=== PATIENT | female | born 1950 | race African-American/Black ===

== ENCOUNTER 2022-05-31 21:24 | Inpatient (IN) | payer MEDICARE, SELFPAY ==
[2022-05-31 22:29] LABS: #Monocytes 0.6 10x3/uL (0.0-1.1); #Neutrophils 12.9 10x3/uL (1.5-8.4); %Basophils 0.2 % (0.0-2.0); %Monocytes 4.4 % (0.0-10.0); %Neutrophils 90.8 % (40.0-75.0); Hemoglobin 16.1 g/dL (12.0-15.5); Mean Corpuscular HGB CONC 31.8 g/dL (32.0-36.0); Mean Corpuscular Hemoglobin 28.3 pg (27.0-33.0); Mean Corpuscular Volume 88.9 fl (81.6-98.3); Mean Platelet Volume 12.4 fl (7.4-10.4); Platelet Count 374 10x3/uL (150-450); RBC Distribution Width 13.1 % (11.5-14.5); Red Blood Cell (RBC) Count 5.69 10x6/uL (3.90-5.03); White Blood Cell (WBC) Count 14.2 10x3/uL (3.5-10.5)
[2022-05-31 22:39] LABS: ALT (SGPT) 20 U/L (8-55); AST (SGOT) 14 U/L (5-34); Albumin 4.6 g/dL (3.4-4.8); Alkaline Phosphatase 88 U/L (40-110); Anion Gap 36 mmol/L (10-20); BUN (Urea Nitrogen) 71 mg/dL (9.8-20.1); Bilirubin, Total 0.5 mg/dL (0.2-1.2); Calc. Creatinine Clearance 0 mL/min (70-130); Calcium 10.7 mg/dL (7.8-10.44); Carbon Dioxide 11 mmol/L (23-31); Chloride 94 mmol/L (98-107); Estimated GFR 15; Globulin 4.1 g/dL (2.4-3.5); Protein, Total 8.7 g/dL (5.8-8.1); Sodium 135 mmol/L (136-145)
[2022-05-31 22:55] LABS: Glucose 1101 mg/dL (83-110); Potassium 6.2 mmol/L (3.5-5.1)
[2022-05-31 23:09] LABS: Bilirubin Neg (Negative); Blood, Urine 10 (Negative); Clarity Clear (Clear); Glucose, Urine (Dipstick) >=1000 mg/dL (Negative); Ketone, Urine 15 mg/dL (Negative); Leukocyte Negative (Negative); Nitrite Negative (Negative); Protein, Urine (Dipstick) Negative (Neg-Trace); Specific Gravity, Urine 1.015 (1.005-1.030); Urobilinogen Normal mg/dL (Less than 2)
[2022-05-31 23:15] LABS: Bacteria/HPF 1+ HPF (None Seen); WBC/HPF 0-3 HPF (0-3)
[2022-05-31] MEDS ORDERED: INSULIN REGULAR IN 0.9 % NACL 100 UNIT/100 ML BAG ONE (23:45)
[2022-06-01] MEDS ORDERED: Electrolyte Replacement Protocol 1 EACH IVPB PRN (00:57)
[2022-06-01] MEDS ORDERED: Dextrose 5 %-0.45 % NaCl 1,000 ML IV PRN ×2 (00:57→23:35)
[2022-06-01] MEDS ORDERED: Calcium Gluconate 4.6 MEQ in Sodium Chloride 0.9% 100 ML IVPB ONE (00:57)
[2022-06-01] MEDS ORDERED: Sodium Chloride 0.9% 1,000 ML IV PRN ×5 (00:57→23:35)
[2022-06-01] MEDS ORDERED: NS 0.9% w/ 20 MEQ KCL 1,000 ML IV PRN ×2 (00:57)
[2022-06-01] MEDS ORDERED: D5 1/2 NS w/20 mEq KCL 1,000 ML IV PRN (00:57)
[2022-06-01] MEDS ORDERED: Dextrose 50% Abboject 50 ML SYRINGE SLOW IVP PRN (00:57)
[2022-06-01] MEDS ORDERED: Nystatin 500,000 UNITS/5 ML UDCUP SSW SCH (01:00)
[2022-06-01] MEDS ORDERED: Acetaminophen 325 MG TAB PO PRN (01:03)
[2022-06-01] MEDS: INSULIN REGULAR IN 0.9 % NACL 100 UNIT in Premix Bag 1 BAG IVPB SCH ×2 (01:15→10:28)
[2022-06-01 01:17] LABS: Magnesium 3.2 mg/dL (1.6-2.6); Phosphorus 8.1 mg/dL (2.3-4.7)
[2022-06-01] MEDS: Nystatin 500,000 UNITS/5 ML UDCUP SSW SCH ×4 (02:13→20:02)
[2022-06-01] MEDS: Sodium Chloride 0.9% 1,000 ML IV PRN ×2 (02:16→03:17)
[2022-06-01] MEDS ORDERED: FLU VACC QS2022-23(65YR UP)/PF 240 MCG/0.7 ML SYRINGE IM ONE (02:30)
[2022-06-01 02:49] LABS: Anion Gap 32 mmol/L (10-20); BUN (Urea Nitrogen) 67 mg/dL (9.8-20.1); Calc. Creatinine Clearance 25 mL/min (70-130); Chloride 113 mmol/L (98-107); Estimated GFR 17; Potassium 5.5 mmol/L (3.5-5.1); Sodium 147 mmol/L (136-145)
[2022-06-01 02:50] LABS: Carbon Dioxide 8 mmol/L (23-31); Glucose 717 mg/dL (83-110)
[2022-06-01] MEDS ORDERED: Calcium Gluconate 4.6 MEQ in Sodium Chloride 0.9% 100 ML IVPB SCH (03:00)
[2022-06-01 04:32] LABS: Glucose 512 mg/dL (83-110)
[2022-06-01 05:27] LABS: #Monocytes 1.7 10x3/uL (0.0-1.1); #Neutrophils 11.8 10x3/uL (1.5-8.4); %Basophils 0.2 % (0.0-2.0); %Lymphocytes 8.7 % (18.0-47.0); %Monocytes 11.4 % (0.0-10.0); %Neutrophils 79.2 % (40.0-75.0); Hemoglobin 14.4 g/dL (12.0-15.5); Mean Corpuscular Hemoglobin 28.2 pg (27.0-33.0); Mean Corpuscular Volume 85.5 fl (81.6-98.3); Mean Platelet Volume 11.6 fl (7.4-10.4); Platelet Count 318 10x3/uL (150-450); RBC Distribution Width 12.7 % (11.5-14.5); Red Blood Cell (RBC) Count 5.11 10x6/uL (3.90-5.03); White Blood Cell (WBC) Count 14.9 10x3/uL (3.5-10.5)
[2022-06-01 05:34] LABS: Anion Gap 20 mmol/L (10-20); BUN (Urea Nitrogen) 54 mg/dL (9.8-20.1); Calc. Creatinine Clearance 33 mL/min (70-130); Calcium 9.9 mg/dL (7.8-10.44); Carbon Dioxide 18 mmol/L (23-31); Chloride 117 mmol/L (98-107); Estimated GFR 24; Glucose 382 mg/dL (83-110); Magnesium 2.8 mg/dL (1.6-2.6); Potassium 4.3 mmol/L (3.5-5.1)
[2022-06-01 05:36] LABS: Phosphorus 2.8 mg/dL (2.3-4.7)
[2022-06-01 05:37] LABS: Sodium 151 mmol/L (136-145)
[2022-06-01] MEDS: Sodium Chloride 0.45% 1,000 ML IV SCH ×3 (05:56→14:16)
[2022-06-01] MEDS: Pantoprazole 40 MG VIAL IVP SCH (08:01)
[2022-06-01] MEDS: Heparin 5,000 UNITS/ML VIAL SC SCH ×3 (08:01→21:14)
[2022-06-01 13:29] LABS: Anion Gap 12 mmol/L (10-20); BUN (Urea Nitrogen) 34 mg/dL (9.8-20.1); Calc. Creatinine Clearance 61 mL/min (70-130); Calcium 7.2 mg/dL (7.8-10.44); Carbon Dioxide 16 mmol/L (23-31); Chloride 115 mmol/L (98-107); Estimated GFR 51; Glucose 123 mg/dL (83-110); Potassium 4.3 mmol/L (3.5-5.1); Sodium 139 mmol/L (136-145)
[2022-06-01] MEDS ORDERED: Dextrose 5 %-0.45 % NaCl 1,000 ML IV SCH (14:15)
[2022-06-01] MEDS ORDERED: Lantus 1000 UNITS/10 ML VIAL SC SCH ×2 (14:30→21:00)
[2022-06-01 14:56] LABS: Anion Gap 13 mmol/L (10-20); BUN (Urea Nitrogen) 37 mg/dL (9.8-20.1); Calc. Creatinine Clearance 45 mL/min (70-130); Carbon Dioxide 20 mmol/L (23-31); Chloride 120 mmol/L (98-107); Estimated GFR 36; Glucose 118 mg/dL (83-110); Potassium 3.8 mmol/L (3.5-5.1); Sodium 149 mmol/L (136-145)
[2022-06-01] MEDS: HumaLOG 300 UNITS/3 ML VIAL SC PRN ×2 (16:31→20:02)
[2022-06-01] MEDS ORDERED: Lisinopril 20 MG TAB PO SCH (18:00)
[2022-06-01] MEDS ORDERED: Sodium Chloride 0.45% 1,000 ML IV SCH (18:45)
[2022-06-01 19:45] LABS: Anion Gap 11 mmol/L (10-20); BUN (Urea Nitrogen) 30 mg/dL (9.8-20.1); Calc. Creatinine Clearance 74 mL/min (70-130); Calcium 5.7 mg/dL (7.8-10.44); Carbon Dioxide 11 mmol/L (23-31); Chloride 107 mmol/L (98-107); Estimated GFR 65; Glucose 449 mg/dL (83-110); Potassium 3.2 mmol/L (3.5-5.1); Sodium 126 mmol/L (136-145)
[2022-06-01] MEDS ORDERED: HumaLOG 300 UNITS/3 ML VIAL SC SCH (20:30)
[2022-06-01 21:37] LABS: Anion Gap 18 mmol/L (10-20); BUN (Urea Nitrogen) 40 mg/dL (9.8-20.1); Calc. Creatinine Clearance 40 mL/min (70-130); Calcium 8.6 mg/dL (7.8-10.44); Carbon Dioxide 14 mmol/L (23-31); Chloride 116 mmol/L (98-107); Estimated GFR 31; Glucose 611 mg/dL (83-110); Sodium 143 mmol/L (136-145)
[2022-06-01] MEDS ORDERED: INSULIN REGULAR IN 0.9 % NACL 100 UNIT in Premix Bag 1 BAG IVPB SCH (23:30)
[2022-06-02 02:45] LABS: #Monocytes 1.1 10x3/uL (0.0-1.1); #Neutrophils 11.4 10x3/uL (1.5-8.4); %Basophils 0.2 % (0.0-2.0); %Eosinophils 0.1 % (0.0-6.0); %Lymphocytes 11.1 % (18.0-47.0); %Neutrophils 80.2 % (40.0-75.0); Hemoglobin 13.2 g/dL (12.0-15.5); Mean Corpuscular HGB CONC 33.6 g/dL (32.0-36.0); Mean Corpuscular Hemoglobin 28.7 pg (27.0-33.0); Mean Corpuscular Volume 85.4 fl (81.6-98.3); Mean Platelet Volume 11.5 fl (7.4-10.4); Platelet Count 248 10x3/uL (150-450); RBC Distribution Width 13.1 % (11.5-14.5); White Blood Cell (WBC) Count 14.2 10x3/uL (3.5-10.5)
[2022-06-02 03:05] LABS: Anion Gap 13 mmol/L (10-20); BUN (Urea Nitrogen) 32 mg/dL (9.8-20.1); Calc. Creatinine Clearance 52 mL/min (70-130); Calcium 8.6 mg/dL (7.8-10.44); Carbon Dioxide 19 mmol/L (23-31); Chloride 117 mmol/L (98-107); Estimated GFR 43; Glucose 237 mg/dL (83-110); Magnesium 2.3 mg/dL (1.6-2.6); Phosphorus 1.3 mg/dL (2.3-4.7); Potassium 3.6 mmol/L (3.5-5.1); Sodium 145 mmol/L (136-145)
[2022-06-02] MEDS: Nystatin 500,000 UNITS/5 ML UDCUP SSW SCH ×4 (03:46→20:08)
[2022-06-02] MEDS ORDERED: Potassium Phosphate 22 MMOL in Sodium Chloride 0.9% 250 ML 250 ML IVPB SCH (04:00)
[2022-06-02] MEDS ORDERED: Sodium Phosphate 15 MMOL in Sodium Chloride 0.9% 250 ML 250 ML IVPB SCH (04:15)
[2022-06-02] MEDS ORDERED: D5 1/2 NS w/20 mEq KCL 1,000 ML IV SCH ×2 (05:00→08:00)
[2022-06-02] MEDS: Lisinopril 20 MG TAB PO SCH (08:35)
[2022-06-02] MEDS: Pantoprazole 40 MG VIAL IVP SCH (08:36)
[2022-06-02] MEDS: Heparin 5,000 UNITS/ML VIAL SC SCH ×3 (08:36→20:09)
[2022-06-02] MEDS ORDERED: 1/2 NS w/KCL 20 mEq 1,000 ML IV SCH (12:00)
[2022-06-02 12:25] LABS: Anion Gap 10 mmol/L (10-20); BUN (Urea Nitrogen) 21 mg/dL (9.8-20.1); Calc. Creatinine Clearance 68 mL/min (70-130); Calcium 7.5 mg/dL (7.8-10.44); Carbon Dioxide 20 mmol/L (23-31); Chloride 117 mmol/L (98-107); Estimated GFR 51; Glucose 499 mg/dL (83-110); Magnesium 1.9 mg/dL (1.6-2.6); Phosphorus 1.8 mg/dL (2.3-4.7); Potassium 4.8 mmol/L (3.5-5.1); Sodium 142 mmol/L (136-145)
[2022-06-02] MEDS ORDERED: Magnesium 2 GM/50 ML(in water) 2 GM in Premix Bag 1 BAG IVPB SCH (13:00)
[2022-06-02 13:16] LABS: Glucose 228 mg/dL (83-110)
[2022-06-02] MEDS: PHOS-NAK 1 PKT PACK PO SCH ×2 (13:58→17:15)
[2022-06-02] MEDS: D5 1/2 NS w/20 mEq KCL 1,000 ML IV SCH ×2 (15:00→20:08)
[2022-06-02] MEDS ORDERED: Amlodipine 5 MG TAB PO SCH (16:15)
[2022-06-02 17:06] LABS: Anion Gap 12 mmol/L (10-20); BUN (Urea Nitrogen) 22 mg/dL (9.8-20.1); Calc. Creatinine Clearance 72 mL/min (70-130); Carbon Dioxide 18 mmol/L (23-31); Chloride 117 mmol/L (98-107); Estimated GFR 55; Glucose 160 mg/dL (83-110); Potassium 3.6 mmol/L (3.5-5.1); Sodium 143 mmol/L (136-145)
[2022-06-02] MEDS: Lantus 1000 UNITS/10 ML VIAL SC SCH (17:32)
[2022-06-02] MEDS: Famotidine 20 MG TAB PO SCH (20:09)
[2022-06-02 21:09] LABS: Hemoglobin A1c 12.6 % (4.0-6.0)
[2022-06-02 23:12] LABS: Anion Gap 13 mmol/L (10-20); BUN (Urea Nitrogen) 16 mg/dL (9.8-20.1); Calc. Creatinine Clearance 72 mL/min (70-130); Calcium 8.2 mg/dL (7.8-10.44); Carbon Dioxide 19 mmol/L (23-31); Chloride 112 mmol/L (98-107); Estimated GFR 55; Glucose 233 mg/dL (83-110); Potassium 3.8 mmol/L (3.5-5.1); Sodium 140 mmol/L (136-145)
[2022-06-03] MEDS: D5 1/2 NS w/20 mEq KCL 1,000 ML IV SCH ×3 (00:44→10:38)
[2022-06-03] MEDS: Nystatin 500,000 UNITS/5 ML UDCUP SSW SCH ×4 (01:40→20:01)
[2022-06-03 04:12] LABS: #Monocytes 0.8 10x3/uL (0.0-1.1); #Neutrophils 7.4 10x3/uL (1.5-8.4); %Basophils 0.2 % (0.0-2.0); %Eosinophils 0.4 % (0.0-6.0); %Lymphocytes 12.3 % (18.0-47.0); %Monocytes 8.3 % (0.0-10.0); %Neutrophils 78.3 % (40.0-75.0); Hemoglobin 11.4 g/dL (12.0-15.5); Mean Corpuscular HGB CONC 33.5 g/dL (32.0-36.0); Mean Corpuscular Hemoglobin 28.2 pg (27.0-33.0); Mean Corpuscular Volume 84.2 fl (81.6-98.3); Platelet Count 176 10x3/uL (150-450); RBC Distribution Width 12.6 % (11.5-14.5); Red Blood Cell (RBC) Count 4.04 10x6/uL (3.90-5.03); White Blood Cell (WBC) Count 9.5 10x3/uL (3.5-10.5)
[2022-06-03 04:22] LABS: Magnesium 2.1 mg/dL (1.6-2.6)
[2022-06-03 04:28] LABS: Anion Gap 10 mmol/L (10-20); BUN (Urea Nitrogen) 11 mg/dL (9.8-20.1); Calc. Creatinine Clearance 92 mL/min (70-130); Calcium 7.8 mg/dL (7.8-10.44); Carbon Dioxide 18 mmol/L (23-31); Chloride 114 mmol/L (98-107); Estimated GFR 73; Glucose 192 mg/dL (83-110); Phosphorus 1.3 mg/dL (2.3-4.7); Potassium 3.7 mmol/L (3.5-5.1); Sodium 138 mmol/L (136-145)
[2022-06-03] MEDS: Heparin 5,000 UNITS/ML VIAL SC SCH ×3 (08:57→20:01)
[2022-06-03] MEDS: PHOS-NAK 1 PKT PACK PO SCH ×4 (08:57→20:03)
[2022-06-03] MEDS: Famotidine 20 MG TAB PO SCH ×2 (08:58→20:01)
[2022-06-03] MEDS: Lisinopril 20 MG TAB PO SCH (08:58)
[2022-06-03] MEDS: Amlodipine 5 MG TAB PO SCH (08:58)
[2022-06-03] MEDS: Lantus 1000 UNITS/10 ML VIAL SC SCH (11:45)
[2022-06-03] MEDS ORDERED: Dextrose 50% Abboject 50 ML SYRINGE SLOW IVP PRN (16:08)
[2022-06-03] MEDS ORDERED: Dextrose 5% in Water 1,000 ML IV PRN (16:08)
[2022-06-03] MEDS ORDERED: Lantus 1000 UNITS/10 ML VIAL SC SCH ×2 (16:15)
[2022-06-03] MEDS: HumaLOG 300 UNITS/3 ML VIAL SC PRN (20:17)
[2022-06-04 04:00] LABS: #Eosinphils 0.1 10x3/uL (0.0-0.5); #Monocytes 0.8 10x3/uL (0.0-1.1); #Neutrophils 6.1 10x3/uL (1.5-8.4); %Basophils 0.2 % (0.0-2.0); %Lymphocytes 15.5 % (18.0-47.0); %Neutrophils 72.8 % (40.0-75.0); Hemoglobin 12.2 g/dL (12.0-15.5); Mean Corpuscular HGB CONC 33.2 g/dL (32.0-36.0); Mean Corpuscular Hemoglobin 27.9 pg (27.0-33.0); Mean Platelet Volume 12.4 fl (7.4-10.4); Platelet Count 186 10x3/uL (150-450); RBC Distribution Width 12.4 % (11.5-14.5); Red Blood Cell (RBC) Count 4.38 10x6/uL (3.90-5.03); White Blood Cell (WBC) Count 8.3 10x3/uL (3.5-10.5)
[2022-06-04 04:17] LABS: Anion Gap 13 mmol/L (10-20); BUN (Urea Nitrogen) 10 mg/dL (9.8-20.1); Calc. Creatinine Clearance 78 mL/min (70-130); Calcium 8.3 mg/dL (7.8-10.44); Carbon Dioxide 18 mmol/L (23-31); Chloride 110 mmol/L (98-107); Estimated GFR 60; Glucose 202 mg/dL (83-110); Magnesium 1.9 mg/dL (1.6-2.6); Phosphorus 1.9 mg/dL (2.3-4.7); Potassium 4.1 mmol/L (3.5-5.1); Sodium 137 mmol/L (136-145)
[2022-06-04] MEDS: Nystatin 500,000 UNITS/5 ML UDCUP SSW SCH ×4 (04:39→20:56)
[2022-06-04] MEDS ORDERED: Magnesium 2 GM/50 ML(in water) 2 GM in Premix Bag 1 BAG IVPB SCH (08:00)
[2022-06-04] MEDS: Lisinopril 20 MG TAB PO SCH (08:52)
[2022-06-04] MEDS: PHOS-NAK 1 PKT PACK PO SCH ×2 (08:52→14:22)
[2022-06-04] MEDS: Famotidine 20 MG TAB PO SCH ×2 (08:52→20:56)
[2022-06-04] MEDS: Heparin 5,000 UNITS/ML VIAL SC SCH ×3 (08:53→20:56)
[2022-06-04] MEDS: Amlodipine 5 MG TAB PO SCH (08:53)
[2022-06-04] MEDS: HumaLOG 300 UNITS/3 ML VIAL SC PRN ×4 (08:54→20:57)
[2022-06-04] MEDS: Hydrochlorothiazide 25 MG TAB PO SCH (09:03)
[2022-06-04] MEDS ORDERED: Lantus 1000 UNITS/10 ML VIAL SC SCH (21:00)
[2022-06-05] MEDS: Nystatin 500,000 UNITS/5 ML UDCUP SSW SCH ×3 (02:10→14:31)
[2022-06-05] MEDS: Amlodipine 5 MG TAB PO SCH (08:29)
[2022-06-05] MEDS: Lisinopril 20 MG TAB PO SCH (08:29)
[2022-06-05] MEDS: Heparin 5,000 UNITS/ML VIAL SC SCH ×2 (08:29→14:30)
[2022-06-05] MEDS: Hydrochlorothiazide 25 MG TAB PO SCH (08:29)
[2022-06-05] MEDS: Famotidine 20 MG TAB PO SCH (08:30)
[2022-06-05] MEDS ORDERED: Fluconazole 100 MG TAB PO SCH (09:00)
[2022-06-05 13:44] VITALS: TEMP 98.7
[2022-06-05 14:00] VITALS: BMI 33.0
[2022-06-05 14:22] VITALS: BP 119/62
[2022-06-05] MEDS: HumaLOG 300 UNITS/3 ML VIAL SC PRN (14:31)
[2022-06-07 23:36] LABS: Metanephrine,Plasma 38.4 pg/mL (0.0-88.0); Normetanephrine,Pl 149.2 pg/mL (0.0-285.2)
== END 2022-06-05 19:04 | disposition home or self-care (01) | DRG 637 ==
LOC: CSHERS 21:24 → CSHICU 06-01 01:15 → CSHTELE 06-04 11:48
PROVIDERS: ADMIT Family Medicine; ATTEND Internal Medicine
DX: E11.10 Type 2 diabetes mellitus with ketoacidosis without coma (principal); G93.41 Metabolic encephalopathy; B37.0 Candidal stomatitis; N17.9 Acute kidney failure, unspecified; I10 Essential (primary) hypertension; E86.1 Hypovolemia; E87.5 Hyperkalemia; D72.829 Elevated white blood cell count, unspecified; Z79.899 Other long term (current) drug therapy; Z82.49 Family history of ischemic heart disease and other diseases of the circulatory system; Z83.3 Family history of diabetes mellitus; Z20.822 Contact with and (suspected) exposure to COVID-19
CPT/HCPCS: 36415; 36416; 70450; 71045; 72131; 74176; 80048; 80053; 81003; 81015; 82010; 82088; 82533; 83036; 83735; 83835; 84100; 84443; 85025; 87040; 93005; 94760; 94762; C9113; J0610; J1644; J1815; J3475; J3480; J3490; J7042; J7050; U0003; U0005